=== PATIENT | female | born 1995 | race Caucasian/White ===

== ENCOUNTER 2020-05-13 14:17 | Outpatient (CLI) | payer BC ==
[~2020-05-13 14:17] MED LIST: ALBU2.5V11 NEB; AMIT10TA PO; EPHEDRINE 50 MG/ML, 1ML IVPush PRN; FENTANYL PF 100 MCG/2ML IV PRN; FLUO10CA15 PO; HYDROmorphone 1 MG/ML, 1ML INJ IVPush PRN; LABETALOL 5MG/ML, 20ML IV PRN; MEPERIDINE/PF 25MG/0.5ML IVPush PRN; ONDANSETRON 2MG/ML, 2ML IVPush PRN; OXYcodone 5 MG/5 ML ORAL.SOL UDC PO PRN; PLEASE ENTER HEIGHT AND WEIGHT MC SCH; PROMETHAZINE 25 MG/ML, 1ML IVPush PRN; hydrALAzine 20 MG/ML, 1ML IV PRN
[2020-05-13] MEDS ORDERED: CHLORHEXIDINE 15 ML UDC MM STA (14:51)
[2020-05-13] MEDS ORDERED: LACTATED RINGERS 1,000 ML IV SCH (15:00)
[2020-05-13] MEDS ORDERED: ACETAMINOPHEN 500 MG TABLET PO ONE (15:00)
[2020-05-13] MEDS ORDERED: BUPIVACAINE/PF 0.25% ONE (16:01)
[2020-05-13] MEDS ORDERED: EPINEPHRINE 1 MG/ML, 1ML ONE (16:01)
== END 2020-05-13 23:59 | disposition home or self-care (01) ==
LOC: OUT 14:17 → OR 14:17 → EDSTATUS 17:30 → OUT 23:59
PROVIDERS: ATTEND Obstetrics & Gynecology
DX: R10.2 Pelvic and perineal pain (principal); Z53.8 Procedure and treatment not carried out for other reasons; N94.6 Dysmenorrhea, unspecified; Z20.828 Contact with and (suspected) exposure to other viral communicable diseases; Z88.8 Allergy status to other drugs, medicaments and biological substances; Z79.899 Other long term (current) drug therapy
CPT/HCPCS: 87635; J0171